=== PATIENT | male | born 1940 | race Caucasian/White ===

== ENCOUNTER 2017-02-08 15:25 | Emergency (ER) | payer MEDICARE | END 2017-02-08 15:42 | disposition home or self-care (01) | LOC: SCSER 15:25 | DX: S46.912A Strain of unspecified muscle, fascia and tendon at shoulder and upper arm level, left arm, initial encounter (principal); E78.2 Mixed hyperlipidemia; I10 Essential (primary) hypertension; N40.0 Benign prostatic hyperplasia without lower urinary tract symptoms; Z79.82 Long term (current) use of aspirin; Z79.899 Other long term (current) drug therapy; X50.0XXA Overexertion from strenuous movement or load, initial encounter | CPT/HCPCS: 99283 ==

== ENCOUNTER 2017-05-02 11:39 | Outpatient (CLI) | payer MEDICARE ==
[2017-05-02 12:38] LABS: #Eosinphils 0.2 thou/uL (0.0-0.7); #Lymphocytes 1.3 thou/uL (1.20-3.40); #Neutrophils 6.7 thou/uL (1.40-6.50); %Basophils 0.4 % (0.0-1.0); %Eosinophils 2.5 % (0.0-10.0); %Lymphocytes 14.1 % (21.0-51.0); %Monocytes 10.6 % (0.0-10.0); %Neutrophils 72.4 % (42.0-75.0); Hemoglobin 15.5 g/dL (14.0-18.0); Mean Corpuscular Hemoglobin 32.2 pg (27.0-31.0); Mean Corpuscular Volume 94.5 fl (80.0-94.0); Mean Platelet Volume 8.1 fL (7.4-10.4); Platelet Count 209 thou/uL (130-400); RBC Distribution Width 11.5 % (11.5-14.5); Red Blood Cell (RBC) Count 4.82 mill/uL (4.70-6.10); White Blood Cell (WBC) Count 9.2 thou/uL (4.8-10.8)
[2017-05-02 13:01] LABS: Anion Gap 12 mmol/L (10-20); BUN (Urea Nitrogen) 19 mg/dL (8.4-25.7); Calc. Creatinine Clearance 0 mL/min (70-130); Calcium 9.8 mg/dL (7.8-10.44); Carbon Dioxide 25 mmol/L (23-31); Chloride 104 mmol/L (98-107); Estimated GFR-MDRD 76; Glucose 83 mg/dL (83-110); Potassium 4.2 mmol/L (3.5-5.1); Sodium 137 mmol/L (136-145)
--- NOTE | 2017-05-02 14:28 | RAD ---
2 VIEW CHEST: Date: 05/02/17 HISTORY: Preoperative evaluation. FINDINGS: Lungs are clear and well aerated. No infiltrate or vascular congestion. Heart size upper normal. Post op sternotomy changes. Moderate degenerative spine changes. Radiopaque anchor noted in the right viktor ral head. IMPRESSION: No evidence of acute process. There are chronic changes as described. POS: OFF
--- NOTE | 2017-05-04 18:34 | EKG ---
Test Reason : Blood Pressure : / mmHG Vent. Rate : 060 BPM Atrial Rate : 060 BPM P-R Int : 192 ms QRS Dur : 100 ms QT Int : 404 ms P-R-T Axes : 075 099 065 degrees QTc Int : 404 ms Normal sinus rhythm Rightward axis Borderline ECG No previous ECGs available Confirmed by DR. Goldy HORN MD ([id number]) on 05/04/2017 6:33:47 PM Referred By: JOSE ALBERTO Confirmed By:DR. Goldy HORN MD
== END 2017-05-02 11:40 | disposition home or self-care (01) ==
LOC: LABBT 11:39
PROVIDERS: ATTEND Specialist
DX: Z01.818 Encounter for other preprocedural examination (principal); K64.8 Other hemorrhoids
CPT/HCPCS: 71046; 80048; 85025; 93005; 93010

== ENCOUNTER 2017-05-07 11:42 | Day surgery (SDC) | payer MEDICARE ==
[2017-05-02 12:03] VITALS: BMI 26.6
[2017-05-07] MEDS ORDERED: Ketorolac Tromethamine 30 MG/ML VIAL ONE (12:36)
[2017-05-07] MEDS ORDERED: CEFAZOLIN/Water 2 GM/20 ML SYRINGE ONE (12:36)
[2017-05-07] MEDS ORDERED: cefOXitin 2 GM, Syringe 1 ML in Sterile Water 10 ML SLOW IVP SCH (13:15)
[2017-05-07] MEDS ORDERED: Bupivacaine/Epinephrine 0.25% 30 ML VIAL ONE (13:43)
[2017-05-07] MEDS ORDERED: Lidocaine 2% Jelly 5 ML TUBE ONE (13:43)
--- NOTE | 2017-05-07 16:55 | OP ---
DATE OF PROCEDURE: 05/07/2017 PREOPERATIVE DIAGNOSIS: Bleeding internal hemorrhoids. POSTOPERATIVE DIAGNOSIS: Bleeding internal hemorrhoids. OPERATION PERFORMED: PPH stapled hemorrhoidectomy. SURGEON: Sohail Bradley M.D. ANESTHESIA: General with laryngeal mask airway. INDICATIONS: The patient is a 76-year-old white male. He presents with recurrent symptoms related t o his internal hemorrhoids. I have recommended stapled hemorrhoidectomy and he presents for this pro cedure. DESCRIPTION OF OPERATION: Informed consent was obtained, and patient was taken to the operating room where general anesthesia obtained with the patient in the supine position. He was then rolled over in a prone jackknife position. Buttocks were taped apart, perirectal area was prepped with Betadine, draped in sterile fashion. Local anesthetic was infiltrated and he is in a 4 quadrant intersphincte cindy approach, utilizing 0.25% Marcaine with epinephrine. The anal dilator was easily passed into the anal canal, and using the same dilator, the anal retractor was positioned and secured in place with 4 interrupted sutures of 2-0 Vicryl. The partial obturator was then utilized to place a pursestring suture of 2-0 Prolene several centimeters proximal to the dentate line. The PPH stapler was obtained and maximally opened and the anvil was passed above the pursestring suture within the rectum. The p ursestring suture was secured around the post of the stapler. The tails of the suture were pulled th rough the lateral openings and the stapler. With external tension on these suture tails, the stapler was closed, advancing the stapler into the anal canal to the appropriate location. The stapler was fired and removed, and the resected specimen was inspected and found to be the appropriate width and thickness. The staple line was then inspected using the partial obturator. Several interrupted sutures of 3-0 V icryl were placed to control any minor oozing along the staple line. Once the staple line was found to be meticulously hemostatic, I placed an internal dressing of Gelfoam and lidocaine jelly. Dry gau ze dressing was placed externally along with mesh pants. There were no complications. Blood loss wa s essentially none. The patient tolerated the procedure well and was taken to recovery room in stabl e condition.
== END 2017-05-07 16:45 | disposition home or self-care (01) ==
LOC: SDC 11:42
PROVIDERS: ATTEND Specialist
PROC: 06BY0ZC Excision of Hemorrhoidal Plexus, Open Approach (ICD-10-PCS; principal; 2017-05-07)
DX: K64.8 Other hemorrhoids (principal); I10 Essential (primary) hypertension; E78.5 Hyperlipidemia, unspecified; N40.0 Benign prostatic hyperplasia without lower urinary tract symptoms; I25.10 Atherosclerotic heart disease of native coronary artery without angina pectoris; K21.9 Gastro-esophageal reflux disease without esophagitis; Z79.82 Long term (current) use of aspirin; Z79.899 Other long term (current) drug therapy; Z95.1 Presence of aortocoronary bypass graft; Z98.890 Other specified postprocedural states
CPT/HCPCS: A4216; J0131; J0694; J1885; J2175

== ENCOUNTER 2017-08-15 13:12 | Outpatient (CLI) | payer MEDICARE ==
--- NOTE | 2017-08-15 15:09 | PET ---
PET CT: Reference is made to prior CT exam dated 07/23/16. CLINICAL HISTORY: Melanoma of face/left cheek. TECHNIQUE: Biodistribution of radiotracer activity is appropriate subsegment to IV administration of F18-FDG. No ndiagnostic attenuation noncontrast CT examination performed in conjunction with scintigraphic imagin g from the level of the vertex to the feet. FINDINGS/IMPRESSION: There is no evidence of a hypermetabolic mass, or evidence of hypermetabolic adenopathy demonstrated. No discrete hypermetabolic cutaneous lesions are evident. Incidental note of enlargement of the prostate gland. There is colonic diverticulosis. Scattered vasc ular disease is present. There is a noninflamed, fat-containing umbilical hernia. IMPRESSION: There is no evidence of a hypermetabolic mass, or evidence of hypermetabolic adenopathy demonstrated. POS: [facility]
== END 2017-08-15 13:13 | disposition home or self-care (01) ==
LOC: PET 13:12
PROVIDERS: ATTEND Internal Medicine Hematology & Oncology
DX: C43.39 Malignant melanoma of other parts of face (principal)
CPT/HCPCS: 78816; A9552

== ENCOUNTER 2018-12-16 05:13 | Outpatient (CLI) | payer MEDICARE ==
[2018-12-16 10:44] LABS: Hemoglobin 15.6 g/dL (14.0-18.0); Mean Corpuscular HGB CONC 34.1 g/dL (32.0-36.0); Mean Corpuscular Hemoglobin 31.9 pg (27.0-31.0); Mean Corpuscular Volume 93.3 fL (78.0-98.0); Mean Platelet Volume 8.2 fL (7.4-10.4); Platelet Count 200 thou/uL (130-400); RBC Distribution Width 11.4 % (11.5-14.5); White Blood Cell (WBC) Count 8.1 thou/uL (4.8-10.8)
[2018-12-16 11:05] LABS: Anion Gap 12 mmol/L (10-20); BUN (Urea Nitrogen) 19 mg/dL (8.4-25.7); Calc. Creatinine Clearance 0 mL/min (70-130); Calcium 9.2 mg/dL (7.8-10.44); Carbon Dioxide 27 mmol/L (23-31); Chloride 102 mmol/L (98-107); Estimated GFR-MDRD 77; Glucose 97 mg/dL (83-110); Potassium 4.1 mmol/L (3.5-5.1); Sodium 137 mmol/L (136-145)
--- NOTE | 2018-12-16 12:48 | EKG ---
Test Reason : Blood Pressure : / mmHG Vent. Rate : 067 BPM Atrial Rate : 067 BPM P-R Int : 188 ms QRS Dur : 096 ms QT Int : 396 ms P-R-T Axes : 063 106 071 degrees QTc Int : 418 ms Normal sinus rhythm Possible Right ventricular hypertrophy Abnormal ECG When compared with ECG of 02-MAY-2017 11:14, No significant change was found Confirmed by DR. Jackie SUTTON ([id number]) on 12/16/2018 12:48:14 PM Referred By: YOLETTE Confirmed By:DR. Jackie SUTTON
== END 2018-12-16 05:14 | disposition home or self-care (01) ==
LOC: LABBT 05:13
PROVIDERS: ATTEND Neurological Surgery
DX: Z01.818 Encounter for other preprocedural examination (principal); M54.16 Radiculopathy, lumbar region
CPT/HCPCS: 80048; 85027; 93005; 93010

== ENCOUNTER 2018-12-22 09:02 | Day surgery (SDC) | payer MEDICARE ==
[2018-12-16 08:45] VITALS: BMI 24.7
[2018-12-22] MEDS ORDERED: ePHEDrine/0.9% NaCl/PF SYRINGE 50 mg/10 ml ONE (10:28)
[2018-12-22] MEDS ORDERED: Ondansetron PF 4 MG/2 ML Vial ONE (10:28)
[2018-12-22] MEDS ORDERED: Lidocaine 1% PF 5 ML VIAL ONE (10:28)
[2018-12-22] MEDS ORDERED: PHENYLEPHRINE-NS 100 MCG/ML 10 ML SYRINGE ONE (10:28)
[2018-12-22] MEDS ORDERED: PROPOFOL 200 MG/20 ML VIAL ONE (10:28)
[2018-12-22] MEDS ORDERED: Rocuronium Bromide 10 MG/ML (10ML VIAL) ONE (10:28)
[2018-12-22] MEDS ORDERED: Dexamethasone 20 MG/5 ML VIAL ONE (10:28)
[2018-12-22] MEDS ORDERED: Propofol 1,000 MG/100 ML VIAL IV ONE ×2 (11:13→11:14)
[2018-12-22] MEDS ORDERED: Fentanyl 100 MCG/2 ML VIAL ONE (13:31)
[2018-12-22] MEDS ORDERED: SUGAMMADEX SODIUM 200 MG/2 ML VIAL ONE (14:38)
[2018-12-22] MEDS ORDERED: Tamsulosin HCl 0.4 MG CAP ONE (15:02)
--- NOTE | 2018-12-22 15:06 | OP ---
DATE OF PROCEDURE: 12/22/2018 DE ALCHOLIZER: Kianna Timmons PA-C PROCEDURE PERFORMED: Left L3-4 microdiskectomy. DESCRIPTION OF PROCEDURE: The patient was brought to the operating room and intubated. He was rolled in prone position on gel-filled chest rolls. An incision was made exposing L3 and L4 on the left, and the level was confirmed by x-ray. We performed left L3-L4 hemilaminectomy. The patient had an external synovial cyst and an unusual facet joint tear. We next identified the left L4 nerve root, and beneath it, there was a fragmented disk herniation, removed in multiple pieces. Some of the disk clearly had extruded intradurally into the left L4 nerve root sleeve, and this was also removed. A complete decompression of left L4 was achieved. The wound was then extensively irrigated. MAC hemostasis was secured. Vancomycin powder was applied, and the wound was closed in anatomic layers. Job ID: [id number]
[2018-12-22] MEDS ORDERED: HYDROcodone/Acetaminophen 5/325 mg Tablet ONE (16:40)
== END 2018-12-22 16:50 | disposition home or self-care (01) ==
LOC: SDC 09:02
PROVIDERS: ATTEND Neurological Surgery
PROC: 0ST20ZZ Resection of Lumbar Vertebral Disc, Open Approach (ICD-10-PCS; principal; 2018-12-22)
PROC: 01NB0ZZ Release Lumbar Nerve, Open Approach (ICD-10-PCS; 2018-12-22)
DX: M51.16 Intervertebral disc disorders with radiculopathy, lumbar region (principal); I10 Essential (primary) hypertension; E78.5 Hyperlipidemia, unspecified; M71.38 Other bursal cyst, other site; M53.86 Other specified dorsopathies, lumbar region; I25.10 Atherosclerotic heart disease of native coronary artery without angina pectoris; K21.9 Gastro-esophageal reflux disease without esophagitis; Z87.891 Personal history of nicotine dependence; Z79.899 Other long term (current) drug therapy; Z79.82 Long term (current) use of aspirin
CPT/HCPCS: 76000; J0131; J0690; J1100; J2001; J2405; J2704; J3010; J3370

== ENCOUNTER 2019-06-12 04:28 | Inpatient (IN) | payer MEDICARE ==
[2019-06-12] MEDS ORDERED: Nitroglycerin 0.4 MG TAB 1 EACH ONE (04:40)
[2019-06-12 04:57] LABS: #Basophils 0.1 thou/uL (0.0-0.2); #Eosinphils 0.4 thou/uL (0.0-0.7); #Lymphocytes 1.8 thou/uL (1.20-3.40); %Basophils 0.8 % (0.0-1.0); %Eosinophils 5.9 % (0.0-10.0); %Lymphocytes 24.5 % (21.0-51.0); %Monocytes 13.4 % (0.0-10.0); %Neutrophils 55.5 % (42.0-75.0); Mean Corpuscular HGB CONC 33.3 g/dL (32.0-36.0); Mean Corpuscular Hemoglobin 31.3 pg (27.0-31.0); Mean Platelet Volume 8.9 fL (7.4-10.4); Platelet Count 192 thou/uL (130-400); RBC Distribution Width 11.5 % (11.5-14.5); Red Blood Cell (RBC) Count 4.79 mill/uL (4.70-6.10); White Blood Cell (WBC) Count 7.2 thou/uL (4.8-10.8)
[2019-06-12] MEDS ORDERED: Aspirin Chewable 81 MG TAB ONE (05:02)
[2019-06-12 05:18] LABS: ALT (SGPT) 22 U/L (8-55); AST (SGOT) 20 U/L (5-34); Albumin 4.2 g/dL (3.4-4.8); Alkaline Phosphatase 57 U/L (40-110); Anion Gap 10 mmol/L (10-20); BUN (Urea Nitrogen) 22 mg/dL (8.4-25.7); Bilirubin, Total 1.1 mg/dL (0.2-1.2); Calc. Creatinine Clearance 0 mL/min (70-130); Calcium 9.3 mg/dL (7.8-10.44); Carbon Dioxide 27 mmol/L (23-31); Chloride 102 mmol/L (98-107); Estimated GFR-MDRD 61; Globulin 2.7 g/dL (2.4-3.5); Glucose 102 mg/dL (83-110); Lipase 17 U/L (8-78); Potassium 4.2 mmol/L (3.5-5.1); Protein, Total 6.9 g/dL (5.8-8.1); Sodium 135 mmol/L (136-145)
[2019-06-12] MEDS ORDERED: Heparin 10,000 UNITS/1 ML VIAL ONE (05:18)
[2019-06-12 05:43] LABS: INR-International Normal Ratio 0.9; Prothrombin Time 11.8 SEC (12.0-14.7)
[2019-06-12 05:44] LABS: PTT 40.9 SEC (22.9-36.1)
[2019-06-12] MEDS ORDERED: Fentanyl 100 MCG/2 ML VIAL ONE (05:57)
[2019-06-12] MEDS ORDERED: Midazolam HCl 2 mg/2 ml Vial ONE (05:57)
[2019-06-12] MEDS ORDERED: DOPamine 400 MG/D5W 250 ML 250 ML ONE (06:02)
--- NOTE | 2019-06-12 07:32 | RAD ---
Exam: Chest one view HISTORY:Chest pain Comparison: 09/26/2006, 05/02/2017 FINDINGS: Cardiac silhouette:Cardiomegaly. Sternotomy wires and mediastinal clips. Aorta: Unremarkable Pulmonary vessels: Normal Costophrenic angles: Clear LUNGS: No mass or consolidation. Hyperinflation with chronic lung parenchymal changes. Pneumothorax: None Osseous abnormalities: None IMPRESSION: No acute cardiopulmonary process.
[2019-06-12] MEDS ORDERED: Acetaminophen/Codeine 30-300mg Tablet PO PRN ×2 (08:02)
[2019-06-12] MEDS ORDERED: Nitroglycerin 0.4 MG TAB (25 Tab Bottle) SL PRN (08:02)
[2019-06-12] MEDS ORDERED: Sodium Chloride 0.9% 200 ML IV PRN (08:02)
[2019-06-12] MEDS ORDERED: Sodium Chloride 0.9% 1,000 ML IV SCH (08:15)
[2019-06-12] MEDS ORDERED: Clopidogrel Bisulfate 300 MG TAB PO SCH (08:15)
[2019-06-12] MEDS ORDERED: Iopamidol 370 76% 100 ML VIAL ONE (09:36)
[2019-06-12] MEDS ORDERED: Iopamidol 370 76% 50 ML VIAL FS ONE (09:36)
--- NOTE | 2019-06-12 09:37 | HP ---
HISTORY OF PRESENT ILLNESS: Fercho Vergara is a 78-year-old white male who has had 2 previous bypass surgeries, the last in 2006. He denies any recent chest discomfort, but awoke this morning at 4 a.m. with chest pressure and some shortness of breath. He came to the emergency room, was given sublingual nitroglycerin and intravenous heparin, placed on a drip. His pain has improved; however, is still somewhat present. EKG shows possible 0.[address]-segment elevation in II, III , and F. He continues to have chest discomfort, although it is better than when he arrived. PAST MEDICAL HISTORY: 1. Hypercholesterolemia. 2. Questionable hypertension. 3. No history of diabetes. MEDICATIONS: 1. Aspirin 81 daily. 2. Finasteride 5 mg daily. 3. Flomax 0.4 mg nightly. 4. Lisinopril 2.5 mg nightly. 5. Metoprolol 12.5 mg nightly. 6. Omeprazole 20 mg daily. 7. Rosuvastatin 20 mg nightly. ALLERGIES: NONE. OPERATIONS: 1. CABG. 2. Hernia surgery. 3. Rotator cuff surgery. SOCIAL HISTORY: Smoked in the distant past. REVIEW OF SYSTEMS: A 10-point review of systems is otherwise unremarkable. PHYSICAL EXAMINATION: VITAL SIGNS: Blood pressure 120/72 and pulse of 80. HEENT: PERRL. NECK: Supple. CHEST: Clear. CARDIAC: S1 and S2 ae normal without any S3, S4, or murmurs. Carotid upstrokes normal without bruits. ABDOMEN: Normal bowel sounds without tenderness. EXTREMITIES: No clubbing, cyanosis, or edema. NEUROLOGIC: Grossly intact. SKIN: Warm and dry. LABORATORY DATA: EKG findings as noted above. CBC is unremarkable. Sodium 135 , potassium 4.2, chloride 102, carbon dioxide 27, BUN 22, and creatinine 1.16. Troponin I of 0.011. IMPRESSION: The patient's EKG does not meet STEMI criteria; however, he has known coronary artery disease and is having continued ongoing chest pain. It was recommended he undergo cardiac catheterization. Risks of this were discussed with the patient's including , myocardial infarction, dye reaction, vascular injury, CVA, transfusion, limb loss, renal loss, etc. Also risk of intervention with PTCA and stent placement were discussed including , myocardial infarction, emergent CABG, restenosis, stent thrombosis, vessel perforation, etc. He has no upcoming surgeries and has never had gastrointestinal bleeding or stroke. It is recommended that a drug-eluting stent be placed if needed. Job ID: [id number] MTDD
[2019-06-12] MEDS: Aspirin 81 mg Enteric Coated Tablet PO SCH (09:43)
[2019-06-12] MEDS: Finasteride 5 MG TAB PO SCH (09:43)
[2019-06-12] MEDS: Lisinopril 2.5 MG TAB PO SCH (09:44)
[2019-06-12] MEDS ORDERED: Heparin 10,000 UNITS/ 10 ML VIAL ONE (12:08)
[2019-06-12 15:25] LABS: Troponin I 0.299 ng/mL (< 0.028)
--- NOTE | 2019-06-12 15:36 | PRG ---
DATE OF SERVICE: 06/12/2019 Mr. Vergara underwent emergency cardiac catheterization today. The patient was found to have a patent LAD graft to the LAD. It was one of the old original vein grafts. The internal mammary graft look like it was intramyocardial, possibly went to a small diagonal branch. The patient may have had some ischemic area in the diagonal branch. It is difficult to be certain. Please see Dr. Alejandre's notes. At this time, medical therapy appears the most appropriate. Plavix has been added. Zetia will be added, he should be able to be released home tomorrow if doing well. Job ID: [id number]
--- NOTE | 2019-06-12 20:21 | CON ---
DATE OF CONSULTATION: 06/12/2019 HISTORY OF PRESENT ILLNESS: Mr. Vergara is a 78-year-old male, who has a history of coronary artery disease. He said he walked on the [place] yesterday over 11,000 steps. He has been doing almost 10,000 steps on any given day. He has had no episodes of chest pain. Apparently last night, he developed neck and chest discomfort at approximately 4 in the morning. Subsequently presented to the emergency room with persistent discomfort in spite of nitrates and anticoagulation, so he was taken to the dental laboratory assistant. No stenting was required. He is pain-free. PAST MEDICAL HISTORY: Remarkable for: 1. Lipid disorder, hypertension, BPH, coronary artery bypass grafting in the past on two occasions, herniorrhaphy, and rotator cuff repair. 2. Left L3-L4 diskectomy done in December of last year. Melanoma of his face with a negative PET imaging afterwards in 2017. 3. Status post colon polyp resections in 2017. 4. Status post resection of a basal cell carcinoma in 2012. SOCIAL HISTORY: He is a distant smoker. He is not a daily drinker. PHYSICAL EXAMINATION: GENERAL: He is in no distress. He is lying flat in bed, talking in complete sentences. VITAL SIGNS: Heart rate is in the 60s, respiratory rates in the teens, and blood pressure 142/69. HEENT: Pupils are equal. Sclerae are anicteric. NECK: Supple. LUNGS: Clear. HEART: Regular rhythm. S1, S2 are normal. ABDOMEN: Soft and nontender. EXTREMITIES: Without clubbing, cyanosis, or edema. NEUROLOGIC: Nonfocal. LABORATORY DATA: White count 7.2, hemoglobin 15, and platelets 192. Sodium 135 , potassium 4.2, chloride 102, bicarb 27, BUN 22, and creatinine 1.16. Troponin at 2:47 this afternoon was 0.29. IMPRESSION: 1. Prolonged episode of chest pain with non-Q-wave myocardial infarction with minimal bump in troponin, status post emergent cardiac catheterization. 2. History of two coronary artery bypass grafting procedures in the past. 3. History of melanoma. 4. History of skin cancer. 5. History of hypertension. 6. Distant history of tobacco with no clinical obstructive lung disease. Overall appears to be improving. We will follow while he is in the Critical Care Unit. This is a 70 min consult with greater than 50% of the time spent on the unit with coordination of care. Job ID: [id number] MTDD
[2019-06-12] MEDS ORDERED: Rosuvastatin 20 MG TAB PO SCH (21:00)
[2019-06-12] MEDS ORDERED: Tamsulosin HCl 0.4 MG CAP PO SCH (21:00)
[2019-06-12 21:27] LABS: Troponin I 0.573 ng/mL (< 0.028)
[2019-06-13] MEDS: Aspirin 81 mg Enteric Coated Tablet PO SCH (08:14)
[2019-06-13] MEDS: Finasteride 5 MG TAB PO SCH (08:14)
[2019-06-13] MEDS: Lisinopril 2.5 MG TAB PO SCH (08:14)
[2019-06-13] MEDS ORDERED: Ezetimibe 10 MG TAB PO SCH (09:00)
[2019-06-13] MEDS ORDERED: Clopidogrel Bisulfate 75 MG TAB PO SCH (09:00)
--- NOTE | 2019-06-13 11:56 | PRG ---
DATE OF SERVICE: 06/13/2019 SUBJECTIVE: Mr. Vergara has had no chest pain. He says he feels fine. He wants to go home. He actually has tomorrow. OBJECTIVE: VITAL SIGNS: Afebrile, heart rate 64, respiratory rate is 18, oximetry is 96% on room air, blood pressure 140/61. LUNGS: Clear. IMPRESSION AND PLAN: Status post urgent catheterization for chest pain, clinically stable. His medications have been adjusted by Cardiology. We will sign off. Job ID: [id number]
[2019-06-13 15:03] VITALS: BP 146/65; TEMP 98.1
--- NOTE | 2019-06-15 09:59 | DIS ---
DATE OF ADMISSION: 06/12/2019 DATE OF DISCHARGE: 06/13/2019 FINAL DIAGNOSES: 1. Status post non-ST elevation myocardial infarction. 2. Previous bypass surgery. 3. Hypercholesterolemia. MEDICINES: At the time of discharge, same as admission with the addition of, 1. Plavix 75 mg a day. 2. Zetia 10 mg a day. Please see note dictated by Dr. Alejandre. The patient underwent cardiac catheterization on an urgent basis when he had ongoing chest pain. Please see Dr. Alejandre's note for the results of the cardiac catheterization. It was unclear really what the source of the bvf-XR-mfvdzegan elevation infarction was, possibly a diagonal branch, not amenable to percutaneous therapy. Of note, the LAD is perfused by a very old vein graft, which is still patent with adequate flow. Internal mammary graft appears to be anastomosed to a side branch, not the LAD itself. The patient was observed and released home on the above listed medicines. PERTINENT LABORATORY DATA: The peak troponin level was 0.573. ASSESSMENT: 1. Non-ST elevation infarction. 2. Previous bypass surgery on two occasions. Medical therapy being the appropriate treatment. Job ID: [id number]
== END 2019-06-13 15:11 | disposition home or self-care (01) | DRG 282 ==
LOC: ERS 04:28 → CCU 08:37 → 2NO 17:29
PROVIDERS: ADMIT Internal Medicine Cardiovascular Disease; ATTEND Internal Medicine Cardiovascular Disease
PROC: 4A023N7 Measurement of Cardiac Sampling and Pressure, Left Heart, Percutaneous Approach (ICD-10-PCS; principal; 2019-06-12)
PROC: B2111ZZ Fluoroscopy of Multiple Coronary Arteries using Low Osmolar Contrast (ICD-10-PCS; 2019-06-12)
PROC: B2151ZZ Fluoroscopy of Left Heart using Low Osmolar Contrast (ICD-10-PCS; 2019-06-12)
DX: I21.4 Non-ST elevation (NSTEMI) myocardial infarction (principal); E78.00 Pure hypercholesterolemia, unspecified; I10 Essential (primary) hypertension; I25.10 Atherosclerotic heart disease of native coronary artery without angina pectoris; E78.5 Hyperlipidemia, unspecified; N40.0 Benign prostatic hyperplasia without lower urinary tract symptoms; Z95.1 Presence of aortocoronary bypass graft; Z86.010 Personal history of colon polyps; Z85.820 Personal history of malignant melanoma of skin; Z87.891 Personal history of nicotine dependence; Z88.1 Allergy status to other antibiotic agents
CPT/HCPCS: 36415; 71045; 76942; 80053; 80061; 83690; 84484; 85025; 85347; 85610; 85730; 86850; 86900; 86901; 93005; 93459; 93798; 94760; 96361; 96365; 96374; 99152; 99153; C1769; J1265; J1644; J2250; J3010; Q9967

== ENCOUNTER 2019-08-24 05:00 | Inpatient (IN) | payer MEDICARE, OTHER ==
[2019-08-24 05:38] LABS: #Basophils 0.1 thou/uL (0.0-0.2); #Lymphocytes 0.6 thou/uL (1.20-3.40); #Monocytes 0.7 thou/uL (0.11-0.59); #Neutrophils 3.8 thou/uL (1.40-6.50); %Basophils 1.2 % (0.0-1.0); %Eosinophils 0.2 % (0.0-10.0); %Monocytes 13.3 % (0.0-10.0); %Neutrophils 73.3 % (42.0-75.0); Hemoglobin 13.3 g/dL (14.0-18.0); Mean Corpuscular HGB CONC 32.9 g/dL (32.0-36.0); Mean Corpuscular Hemoglobin 30.4 pg (27.0-31.0); Mean Corpuscular Volume 92.3 fL (78.0-98.0); Mean Platelet Volume 7.4 fL (7.4-10.4); Platelet Count 200 thou/uL (130-400); RBC Distribution Width 11.2 % (11.5-14.5); Red Blood Cell (RBC) Count 4.37 mill/uL (4.70-6.10); White Blood Cell (WBC) Count 5.2 thou/uL (4.8-10.8)
[2019-08-24 06:01] LABS: ALT (SGPT) 82 U/L (8-55); AST (SGOT) 104 U/L (5-34); Albumin 3.7 g/dL (3.4-4.8); Alkaline Phosphatase 41 U/L (40-110); Anion Gap 10 mmol/L (10-20); BUN (Urea Nitrogen) 10 mg/dL (8.4-25.7); Bilirubin, Total 0.7 mg/dL (0.2-1.2); CK (CPK) 79 U/L (30-200); Calc. Creatinine Clearance 0 mL/min (70-130); Carbon Dioxide 30 mmol/L (23-31); Chloride 96 mmol/L (98-107); Estimated GFR-MDRD 89; Globulin 3.1 g/dL (2.4-3.5); Glucose 100 mg/dL (83-110); Potassium 4.3 mmol/L (3.5-5.1); Protein, Total 6.8 g/dL (5.8-8.1); Sodium 132 mmol/L (136-145)
[2019-08-24] MEDS ORDERED: Azithromycin 500 MG VIAL ONE (07:19)
[2019-08-24] MEDS ORDERED: Aspirin Chewable 81 MG TAB ONE (07:22)
--- NOTE | 2019-08-24 07:47 | RAD ---
RADIOGRAPH CHEST 1 VIEW: DATE: 08/24/2019 TIME: 5:42 AM HISTORY: 79-year-old COVID-19 positive male with dyspnea COMPARISON: 06/12/2019 FINDINGS: New finding of prominent interstitial markings at the bilateral mid and lower lung zones. New finding of partial silhouetting of bilateral hemidiaphragms, left greater than right. Cardiac size at upper limits of normal or mildly enlarged, with shaggy left heart border. Sternotomy wires. Lung apic es clear. No pneumothorax. IMPRESSION: New interstitial changes at bilateral mid and lower lung zones: Mild Pulmonary interstitial edema jeet sherly viral pneumonia. Recommend follow-up.
[2019-08-24] MEDS ORDERED: Dexamethasone 10 MG/ML VIAL ONE (08:22)
[2019-08-24] MEDS ORDERED: Enoxaparin Sodium 40 MG/0.4 ML SYRINGE ONE (08:22)
[2019-08-24 09:00] LABS: Troponin I 0.031 ng/mL (< 0.028)
[2019-08-24] MEDS ORDERED: Aztreonam 1 GM in Sodium Chloride 0.9% 100 ML IVPB SCH (09:15)
--- NOTE | 2019-08-24 09:19 | CT ---
CT PULMONARY ANGIOGRAM WITH IV CONTRAST AND 3D POSPROCESSING: Date: 08/24/2019 HISTORY: Dyspnea. COVID-positive. FINDINGS: There is good contrast opacification of the pulmonary arterial vasculature without filling defects to suggest pulmonary embolism. The thoracic aorta is well opacified without aneurysm or dissection. No pleural or pericardial effusions are seen. Patchy peripheral ground-glass opacities are seen bilatera lly. There are degenerative changes in the spine. IMPRESSION: 1. No CT evidence of pulmonary embolism. 2. Bilateral ground-glass infiltrates are consistent with COVID-19 pneumonia. POS: [facility]
[2019-08-24] MEDS ORDERED: Iopamidol-370 76% 500 ML 1 ML ONE (09:49)
[2019-08-24] MEDS ORDERED: Bisacodyl 5 MG TAB PO PRN (09:54)
[2019-08-24] MEDS ORDERED: Bisacodyl 10 MG SUPP PR PRN (09:54)
[2019-08-24] MEDS ORDERED: Ondansetron ODT 4 MG TAB PO PRN (09:54)
[2019-08-24] MEDS ORDERED: Calcium Carbonate 500 MG ChewTAB PO PRN (09:54)
[2019-08-24] MEDS ORDERED: Acetaminophen 325 MG TAB PO PRN (09:54)
[2019-08-24] MEDS ORDERED: Ondansetron PF 4 MG/2 ML Vial IVP PRN (09:54)
[2019-08-24] MEDS ORDERED: Cepastat Lozenges 1 LOZ PO PRN (09:57)
[2019-08-24] MEDS ORDERED: Diabetic Tussin 200 MG/10 ML UDCUP PO PRN (09:57)
[2019-08-24 10:41] VITALS: BMI 32.8
[2019-08-24] MEDS: Albuterol 200 PUFF (6.7GM INHALER) INH SCH ×4 (11:38→21:04)
--- NOTE | 2019-08-24 17:36 | CON ---
DATE OF CONSULTATION: 08/24/2019 REASON FOR CONSULTATION: COVID infection. HISTORY OF PRESENT ILLNESS: A 79-year-old with history of hyperlipidemia and hypertension, who had a tcx-TX-[id number] elevation NE just last June and he had an urgent cardiac cath and he was not amenable to percutaneous therapy. He did have an old vein graft from a prior bypass graft surgery, which was still patent, so more recently and actually more like 15 days ago, he was at a [employer] and later on it became known that one of the people at the [employer] was tested positive for COVID, and now him and his had tested positive. He was trying to stay at home, but became more short of breath and had to be admitted, came through the emergency room, and today, his O2 saturations were in the mid 80s on room air. He is currently feeling well. His cough has subsided a bit. No headaches, visual symptoms, sore throat , odynophagia, or dysphagia. Mild dyspnea. No chest pain. No abdominal pain or diarrhea. No genitourinary symptoms. No joint symptoms. No skin disorder. PAST MEDICAL HISTORY: 1. Coronary artery disease. 2. Bypass graft surgery. 3. Recent ktt-UC-jlbjgte elevation NE. 4. Hypertension. 5. Hyperlipidemia. PAST SURGICAL HISTORY: Also includes: 1. Rotator cuff repair. 2. Hernia repair. SOCIAL HISTORY: Retired. Never smoker. ALLERGIES: CEPHALEXIN. FAMILY HISTORY: Cad Meds: 1. Proventil. 2. Aspirin. 3. Dulcolax. 4. Plavix. 5. Decadron. 6. Lovenox. 7. Zetia. 8. Mucinex. 9. Imdur. 10. Zestril. 11. Zofran. 12. Protonix. 13. Crestor. 14. Flomax. PHYSICAL EXAMINATION: VITAL SIGNS: He has been afebrile, BP 130/76, pulse 80, respirations 20, and O2 saturation 94 to 95. SKIN: Normal. No lymphadenopathy. Peripheral IV access. HEENT: Ocular movements conjugate. NECK: Supple. LUNGS: Symmetric, clear breath sounds. HEART: S1 and S2. Regular rate. No S3 or S4. ABDOMEN: Soft, not distended or tender. No ascites. No bladder distention. EXTREMITIES: No joint inflammatory activity, moves extremities equally. NEUROLOGIC: Cognitive function appears to be intact. LABORATORY DATA: Sodium 132 and creatinine 0.84. AST 104 and ALT 82. Troponin 0.037. CRP 9.65. Albumin 3.7. A chest CT with scattered ground-glass opacity changes. ASSESSMENT: COVID pneumonia, moderate disease, 10 days of illness thus far. He is not eligible for remdesivir. We will go ahead and continue Decadron and monitor ferritin, CRP, and D-dimer. Enoxaparin. Job ID: [id number] MTDD
[2019-08-24] MEDS ORDERED: Enoxaparin Sodium 40 MG/0.4 ML SYRINGE SC SCH (21:00)
[2019-08-24] MEDS ORDERED: Rosuvastatin 20 MG TAB PO SCH (21:00)
[2019-08-24] MEDS: Zinc Sulfate 220 MG CAP PO SCH (21:02)
[2019-08-24] MEDS: Senokot S 8.6-50 MG TAB PO SCH (21:02)
[2019-08-24] MEDS: Tamsulosin HCl 0.4 MG CAP PO SCH (21:04)
[2019-08-24] MEDS: guaiFENesin ER 600 MG TAB PO SCH (21:04)
[2019-08-24] MEDS: Aspirin Chewable 81 MG TAB PO SCH (21:04)
[2019-08-24] MEDS: Lisinopril 2.5 MG TAB PO SCH (21:04)
--- NOTE | 2019-08-24 21:34 | PDOC.EVN ---
Event Note - Event Note Event Note: Note dictated. Full code. DPOA - spouse
--- NOTE | 2019-08-24 21:57 | HP ---
PRIMARY CARE: Tomi Peralta MD CHIEF COMPLAINT: Shortness of breath with low oxygen saturation. HISTORY OF PRESENT ILLNESS: The patient is a 79-year-old male with coronary artery disease status post bypass, who was diagnosed with COVID-19 infection 10 days ago, presented to the emergency room with above complaints. Over the past few days, the patient developed gradual worsening shortness of breath to the extent that he was short of breath on gces-gr-oudmglvo exertion. He also had cough with minimal sputum. He also had fever without any chills. His also has similar symptoms. He was diagnosed with COVID 10 days ago. He denies any nausea, vomiting, chest pain, palpitations, diaphoresis, dysuria, hematuria, urgency, or skin rash. His O2 saturation at home was in 80s. In the emergency room, his initial vital signs showed temperature 100.5 with respirations of 28, pulse rate of 95 with blood pressure of 138/69, and O2 saturation of 94% on 2 L nasal cannula. His EKG showed sinus rhythm with nonspecific ST-T wave changes. Chest x-ray showed bilateral pneumonia. CT angiogram of the chest showed bilateral ground-glass infiltrates consistent with COVID-19 pneumonia. He received Decadron along with Lovenox, Azactam, aspirin, and azithromycin in the emergency room. PAST MEDICAL HISTORY: 1. Coronary artery disease status post CABG with recent non ST elevation ID. 2. Hyperlipidemia. 3. Hypertension. 4. Benign prostatic hypertrophy. 5. GERD. PAST SURGICAL HISTORY: 1. Coronary artery bypass grafting. 2. Hernia repair. 3. Right rotator cuff surgery. ALLERGIES: THE PATIENT IS ALLERGIC TO KEFLEX. CURRENT HOME MEDICATIONS: 1. Aspirin 81 mg daily. 2. Plavix 75 mg daily. 3. Toprol-XL 12.5 mg at bedtime. 4. Omeprazole 20 mg daily. 5. Crestor 20 mg at bedtime. 6. Flomax 0.4 mg at bedtime. 7. Zetia 10 mg daily. 8. Finasteride 5 mg daily. 9. Isosorbide mononitrate 30 mg daily. 10. Lisinopril 2.5 mg at bedtime. SOCIAL HISTORY: The patient currently lives at home with his family. He drinks alcohol socially. No smoking or drug use. FAMILY HISTORY: Negative for premature coronary artery disease. REVIEW OF SYSTEMS: All other review of systems was reviewed and was found negative. PHYSICAL EXAMINATION: VITAL SIGNS: As discussed above. GENERAL: A 79-year-old male, ill-appearing, in no significant respiratory distress at rest. HEENT: Head, atraumatic and normocephalic. Sclerae are anicteric. Moist mucous membrane. No oral lesion. NECK: Supple. No JVD. No carotid bruit. LUNGS: Showed scattered rhonchi with few rales. No accessory muscle use. Lungs were symmetric. HEART: S1 and S2 present. Regular. No rubs or gallops. Healed midline scar from previous CABG. ABDOMEN: Soft. Bowel sounds present. No rebound or guarding. No costovertebral angle tenderness. EXTREMITIES: No edema or calf tenderness. NEUROLOGY: Grossly nonfocal. Moves all 4 extremities. PSYCHIATRY: Alert, awake, and oriented x3. SKIN: Warm and dry. LYMPH NODES: No palpable lymph nodes in the neck. PERIPHERAL VASCULAR: Radial pulses palpable bilaterally. MUSCULOSKELETAL: No joint swelling tenderness. LABORATORY FINDINGS: CBC showed WBC 5.2 with hemoglobin 13.3, hematocrit 40.4, and platelet count of 200. D-dimer was 0.9. Chemistry showed sodium 132, potassium 4.3, chloride 96, bicarb 30, BUN of 10, and creatinine 0.84. Ferritin was 3473. CRP was 9.65. Troponin initially was 0.037. Repeat troponins were negative. Chest x-ray by my review as discussed above. CT angiogram of the chest and EKG by my review as discussed above. IMPRESSION: 1. Acute hypoxic respiratory failure. 2. Severe sepsis secondary to bilateral COVID pneumonia. 3. Coronary artery disease, status post coronary artery bypass grafting and recent non ST elevation myocardial infarction. 4. Hypertension. 5. Hyperlipidemia. 6. Benign prostatic hypertrophy. 7. Hyponatremia. 8. Abnormal LFTs. 9. Chronic kidney disease stage 2. 10. Chronic anemia, suspected due to nutritional deficiency. PLAN: The patient will be monitored on the telemetry unit. We will start him on dexamethasone. Infectious Disease will be consulted for possible remdesivir infusion. We will resume all of his home medication including aspirin and Plavix. Continue empiric antibiotics. We will hold statins due to abnormal LFTs. We will recheck labs including inflammatory markers on a daily basis. DVT prophylaxis with Lovenox. The patient was counseled on COVID-19 precautions. The patient understands the above plan of care. Job ID: [id number]
[2019-08-25] MEDS: Albuterol 200 PUFF (6.7GM INHALER) INH SCH ×6 (03:05→22:35)
[2019-08-25 06:15] LABS: #Lymphocytes 0.7 thou/uL (1.20-3.40); #Monocytes 0.7 thou/uL (0.11-0.59); #Neutrophils 4.3 thou/uL (1.40-6.50); %Basophils 0.4 % (0.0-1.0); %Eosinophils 0.2 % (0.0-10.0); %Lymphocytes 12.6 % (21.0-51.0); %Monocytes 11.5 % (0.0-10.0); %Neutrophils 75.3 % (42.0-75.0); Hemoglobin 14.7 g/dL (14.0-18.0); Mean Corpuscular Hemoglobin 30.2 pg (27.0-31.0); Mean Corpuscular Volume 94.4 fL (78.0-98.0); Mean Platelet Volume 8.4 fL (7.4-10.4); Platelet Count 256 thou/uL (130-400); RBC Distribution Width 11.5 % (11.5-14.5); Red Blood Cell (RBC) Count 4.87 mill/uL (4.70-6.10); White Blood Cell (WBC) Count 5.7 thou/uL (4.8-10.8)
[2019-08-25 06:31] LABS: ALT (SGPT) 87 U/L (8-55); AST (SGOT) 82 U/L (5-34); Albumin 3.7 g/dL (3.4-4.8); Alkaline Phosphatase 45 U/L (40-110); Anion Gap 18 mmol/L (10-20); BUN (Urea Nitrogen) 14 mg/dL (8.4-25.7); Bilirubin, Total 0.7 mg/dL (0.2-1.2); Calc. Creatinine Clearance 93 mL/min (70-130); Calcium 9.4 mg/dL (7.8-10.44); Carbon Dioxide 17 mmol/L (23-31); Chloride 101 mmol/L (98-107); Estimated GFR-MDRD Greater than 90; Globulin 3.7 g/dL (2.4-3.5); Glucose 126 mg/dL (83-110); Magnesium 2.2 mg/dL (1.6-2.6); Potassium 4.3 mmol/L (3.5-5.1); Protein, Total 7.4 g/dL (5.8-8.1); Sodium 132 mmol/L (136-145)
--- NOTE | 2019-08-25 08:33 | PDOC.HOSPP ---
- Subjective Encounter Date: 08/25/19 Encounter Time: 12:57 Subjective: Patient seen and examined for resp failure. Appetite improving. Productive cough +. No new complaints. No overnight events - Objective Vital Signs & Weight: Vital Signs (12 hours) Temp Pulse Resp BP Pulse Ox 08/25/19 04:00 97.3 F L 68 18 141/70 H 94 L 08/25/19 00:00 97.9 F 68 18 101/58 L 94 L Weight Weight 173 lb 12.8 oz I&O: 08/24/19 08/25/19 08/26/19 06:59 06:59 06:59 Intake Total 1350 Output Total 300 Balance 1050 Result Diagrams: 08/25/19 05:23 08/25/19 05:22 EKG Reviewed by me: Yes (Tele SR) Hospitalist ROS - Review of Systems Respiratory: reports: cough, SOB with excertion. denies: dry, shortness of breath, hemoptysis, pleuritic pain, sputum, wheezing, other Cardiovascular: denies: chest pain, palpitations, orthopnea, paroxysmal noc. dyspnea, edema, light headedness, other Gastrointestinal: denies: nausea, vomiting, abdominal pain, diarrhea, constipation, melena, hematochezia, other - Medication Medications: Active Medications Generic Name Dose Route Start Last Admin Trade Name Freq PRN Reason Stop Dose Admin Albuterol Sulfate 2 puff 08/24/19 10:30 08/25/19 04:55 Proventil Hfa INH 2 puff [id number] IMELDA Administration Aspirin 81 mg 08/24/19 21:00 08/24/19 21:04 Aspirin Chewable PO 81 mg HS IMELDA Administration Guaifenesin 600 mg 08/24/19 21:00 08/24/19 21:04 Mucinex PO 600 mg Q12HR IMELDA Administration Lisinopril 2.5 mg 08/24/19 21:00 08/24/19 21:04 Zestril PO 2.5 mg HS IMELDA Administration Metoprolol Succinate 12.5 mg 08/24/19 21:00 08/24/19 21:02 Toprol Xl PO 12.5 mg HS IMELDA Administration Pantoprazole Sodium 40 mg 08/24/19 21:00 08/24/19 21:02 Protonix PO 40 mg HS IMEDLA Administration Senna/Docusate Sodium 2 tab 08/24/19 21:00 08/24/19 21:02 Senokot S PO 2 tab BID IMELDA Administration Tamsulosin HCl 0.4 mg 08/24/19 21:00 08/24/19 21:04 Flomax PO 0.4 mg HS IMELDA Administration Zinc Sulfate 220 mg 08/24/19 21:00 08/24/19 21:02 Zinc Sulfate PO 220 mg HS IMELDA Administration - Exam General Appearance: NAD Heart: RRR, no gallops Respiratory: no rales, rhonchi Gastrointestinal: non-tender, normal bowel sounds Extremities: no cyanosis Neurological: no new deficit Hosp A/P - Plan DVT proph w/lovenox, DVT proph w/SCDs 1. Acute hypoxic respiratory failure. 2. Severe sepsis secondary to bilateral COVID pneumonia. 3. Coronary artery disease, status post coronary artery bypass grafting and recent non ST elevation myocardial infarction. 4. Hypertension. 5. Hyperlipidemia. 6. Benign prostatic hypertrophy. 7. Hyponatremia. 8. Abnormal LFTs. 9. Chronic kidney disease stage 2. 10. Chronic anemia, suspected due to nutritional deficiency. PLAN: Cont dexamethasone. Does not meet criteria for remdesivir Cont aspirin and Plavix Cont BB, ACEI and Nitrates DVT prophylaxis with Lovenox.
[2019-08-25] MEDS ORDERED: Dexamethasone 10 MG/ML VIAL SLOW IVP SCH (09:00)
[2019-08-25] MEDS: Enoxaparin Sodium 40 MG/0.4 ML SYRINGE SC SCH (10:06)
[2019-08-25] MEDS: Ezetimibe 10 MG TAB PO SCH (10:06)
[2019-08-25] MEDS: Senokot S 8.6-50 MG TAB PO SCH ×3 (10:06→20:59)
[2019-08-25] MEDS: Ascorbic Acid 500 mg Chewable Tablet PO SCH (10:06)
[2019-08-25] MEDS: Finasteride 5 MG TAB PO SCH (10:07)
[2019-08-25] MEDS: Clopidogrel Bisulfate 75 MG TAB PO SCH (10:07)
[2019-08-25] MEDS: Dexamethasone 4 MG TAB PO SCH (10:07)
[2019-08-25] MEDS: guaiFENesin ER 600 MG TAB PO SCH ×2 (10:07→20:35)
[2019-08-25] MEDS: Aspirin Chewable 81 MG TAB PO SCH (20:34)
[2019-08-25] MEDS: Tamsulosin HCl 0.4 MG CAP PO SCH (20:35)
[2019-08-25] MEDS: Zinc Sulfate 220 MG CAP PO SCH (20:35)
[2019-08-25] MEDS: Lisinopril 2.5 MG TAB PO SCH (21:00)
[2019-08-26] MEDS: Albuterol 200 PUFF (6.7GM INHALER) INH SCH ×7 (02:47→22:45)
[2019-08-26 04:44] LABS: #Lymphocytes 0.5 thou/uL (1.20-3.40); #Monocytes 0.9 thou/uL (0.11-0.59); #Neutrophils 9.7 thou/uL (1.40-6.50); %Eosinophils 0.1 % (0.0-10.0); %Monocytes 8.3 % (0.0-10.0); %Neutrophils 87.6 % (42.0-75.0); Mean Corpuscular HGB CONC 33.6 g/dL (32.0-36.0); Mean Corpuscular Hemoglobin 30.9 pg (27.0-31.0); Mean Corpuscular Volume 92.1 fL (78.0-98.0); Mean Platelet Volume 7.3 fL (7.4-10.4); Platelet Count 277 thou/uL (130-400); Red Blood Cell (RBC) Count 3.87 mill/uL (4.70-6.10); White Blood Cell (WBC) Count 11.1 thou/uL (4.8-10.8)
[2019-08-26 04:53] LABS: ALT (SGPT) 103 U/L (8-55); AST (SGOT) 77 U/L (5-34); Albumin 3.2 g/dL (3.4-4.8); Alkaline Phosphatase 43 U/L (40-110); Anion Gap 13 mmol/L (10-20); BUN (Urea Nitrogen) 20 mg/dL (8.4-25.7); Bilirubin, Total 0.6 mg/dL (0.2-1.2); CRP (Inflammatory) 4.07 mg/dL (= or < 0.5); Calc. Creatinine Clearance 91 mL/min (70-130); Calcium 8.7 mg/dL (7.8-10.44); Carbon Dioxide 23 mmol/L (23-31); Chloride 101 mmol/L (98-107); Estimated GFR-MDRD Greater than 90; Globulin 2.9 g/dL (2.4-3.5); Glucose 120 mg/dL (83-110); Potassium 4.2 mmol/L (3.5-5.1); Protein, Total 6.1 g/dL (5.8-8.1); Sodium 133 mmol/L (136-145)
--- NOTE | 2019-08-26 07:28 | PDOC.HOSPP ---
- Subjective Encounter Date: 08/26/19 Encounter Time: 17:00 Subjective: Patient seen and examined for resp failure. No new complaints. No overnight events - Objective Vital Signs & Weight: Vital Signs (12 hours) Temp Pulse Resp BP BP Pulse Ox 08/26/19 05:44 95 08/26/19 04:03 97.8 F 72 20 103/56 L 95 08/26/19 00:15 97.7 F 62 20 134/63 95 08/25/19 21:00 64 114/58 L 08/25/19 20:36 97.9 F 64 20 114/58 L 94 L Weight Admit Weight 173 lb 12.8 oz Weight 173 lb 12.8 oz I&O: 08/25/19 08/26/19 08/27/19 06:59 06:59 06:59 Intake Total 1350 660 Output Total 300 Balance 1050 660 Result Diagrams: 08/26/19 04:19 08/26/19 04:19 Additional Labs: Laboratory Tests 08/24/19 08/26/19 08/26/19 05:17 04:19 04:19 D-Dimer 0.90 H Ferritin 3322.18 H C-Reactive Protein 4.07 H 08/26/19 04:19 D-Dimer 0.42 Ferritin C-Reactive Protein EKG Reviewed by me: Yes (Tele Sr) Hospitalist ROS - Review of Systems Respiratory: denies: cough, dry, shortness of breath, hemoptysis, SOB with excertion, pleuritic pain, sputum, wheezing, other Cardiovascular: denies: chest pain, palpitations, orthopnea, paroxysmal noc. dyspnea, edema, light headedness, other - Medication Medications: Active Medications Generic Name Dose Route Start Last Admin Trade Name Freq PRN Reason Stop Dose Admin Albuterol Sulfate 2 puff 08/24/19 10:30 08/26/19 06:46 Proventil Hfa INH 2 puff [id number] IMELDA Administration Ascorbic Acid 1,000 mg 08/25/19 09:00 08/25/19 10:06 Vitamin C PO 1,000 mg DAILY IMELDA Administration Aspirin 81 mg 08/24/19 21:00 08/25/19 20:34 Aspirin Chewable PO 81 mg HS IMELDA Administration Clopidogrel Bisulfate 75 mg 08/25/19 09:00 08/25/19 10:07 Plavix PO 75 mg DAILY IMELDA Administration Dexamethasone 6 mg 08/25/19 09:00 08/25/19 10:07 Decadron PO 6 mg DAILY IMELDA Administration Ezetimibe 10 mg 08/25/19 09:00 08/25/19 10:06 Zetia PO 10 mg DAILY IMELDA Administration Enoxaparin Sodium 40 mg 08/25/19 09:00 08/25/19 10:06 Lovenox SC 40 mg 0900 IMELDA Administration Finasteride 5 mg 08/25/19 09:00 08/25/19 10:07 Proscar PO 5 mg DAILY IMELDA Administration Guaifenesin 600 mg 08/24/19 21:00 08/25/19 20:35 Mucinex PO 600 mg Q12HR IMELDA Administration Isosorbide Mononitrate 30 mg 08/25/19 09:00 08/25/19 10:07 Imdur Er PO 30 mg DAILY IMELDA Administration Lisinopril 2.5 mg 08/24/19 21:00 08/25/19 21:00 Zestril PO 2.5 mg HS IMELDA Administration Metoprolol Succinate 12.5 mg 08/24/19 21:00 08/25/19 21:00 Toprol Xl PO 12.5 mg HS IMELDA Administration Pantoprazole Sodium 40 mg 08/24/19 21:00 08/25/19 20:35 Protonix PO 40 mg HS IMELDA Administration Senna/Docusate Sodium 2 tab 08/24/19 21:00 08/25/19 20:59 Senokot S PO Not Given BID IMELDA Sodium Chloride 10 ml 08/24/19 09:54 08/25/19 20:37 Flush - Normal Saline IVF 10 ml PRN PRN Administration Saline Flush Tamsulosin HCl 0.4 mg 08/24/19 21:00 08/25/19 20:35 Flomax PO 0.4 mg HS IMELDA Administration Zinc Sulfate 220 mg 08/24/19 21:00 08/25/19 20:35 Zinc Sulfate PO 220 mg HS IMELDA Administration - Exam General Appearance: NAD Neck: supple, no JVD Heart: RRR, no gallops Respiratory: no wheezes, no ronchi Gastrointestinal: soft, non-tender, normal bowel sounds Extremities: no cyanosis, no clubbing Neurological: no new deficit Hosp A/P - Plan DVT proph w/lovenox, DVT proph w/SCDs 1. Acute hypoxic respiratory failure. 2. Severe sepsis secondary to bilateral COVID pneumonia. 3. Coronary artery disease, status post coronary artery bypass grafting and recent non ST elevation myocardial infarction. 4. Hypertension. 5. Hyperlipidemia. 6. Benign prostatic hypertrophy. 7. Hyponatremia. 8. Abnormal LFTs. 9. Chronic kidney disease stage 2. 10. Chronic anemia, suspected due to nutritional deficiency. PLAN: Cont PO dexamethasone Inf markers improving Cont aspirin and Plavix Cont BB, ACEI and Nitrates DVT prophylaxis with Lovenox. Cont to monitor DC planning per ID
[2019-08-26] MEDS: Ascorbic Acid 500 mg Chewable Tablet PO SCH (08:44)
[2019-08-26] MEDS: Dexamethasone 4 MG TAB PO SCH (08:45)
[2019-08-26] MEDS: Ezetimibe 10 MG TAB PO SCH (08:45)
[2019-08-26] MEDS: Clopidogrel Bisulfate 75 MG TAB PO SCH (08:45)
[2019-08-26] MEDS: Senokot S 8.6-50 MG TAB PO SCH ×2 (08:45→21:14)
[2019-08-26] MEDS: Enoxaparin Sodium 40 MG/0.4 ML SYRINGE SC SCH (08:46)
[2019-08-26] MEDS: Finasteride 5 MG TAB PO SCH (08:46)
[2019-08-26] MEDS: guaiFENesin ER 600 MG TAB PO SCH ×2 (08:46→21:12)
[2019-08-26] MEDS: Aspirin Chewable 81 MG TAB PO SCH (21:12)
[2019-08-26] MEDS: Lisinopril 2.5 MG TAB PO SCH (21:14)
[2019-08-26] MEDS: Tamsulosin HCl 0.4 MG CAP PO SCH (21:15)
[2019-08-26] MEDS: Zinc Sulfate 220 MG CAP PO SCH (21:20)
[2019-08-27] MEDS: Albuterol 200 PUFF (6.7GM INHALER) INH SCH ×4 (02:32→16:47)
[2019-08-27 05:14] LABS: #Lymphocytes 0.4 thou/uL (1.20-3.40); #Neutrophils 8.9 thou/uL (1.40-6.50); %Eosinophils 0.1 % (0.0-10.0); %Lymphocytes 4.3 % (21.0-51.0); %Monocytes 9.4 % (0.0-10.0); %Neutrophils 86.3 % (42.0-75.0); Hemoglobin 12.2 g/dL (14.0-18.0); Mean Corpuscular HGB CONC 33.1 g/dL (32.0-36.0); Mean Corpuscular Hemoglobin 30.6 pg (27.0-31.0); Mean Corpuscular Volume 92.5 fL (78.0-98.0); Mean Platelet Volume 7.2 fL (7.4-10.4); Platelet Count 298 thou/uL (130-400); RBC Distribution Width 11.3 % (11.5-14.5); Red Blood Cell (RBC) Count 3.98 mill/uL (4.70-6.10); White Blood Cell (WBC) Count 10.3 thou/uL (4.8-10.8)
[2019-08-27 05:35] LABS: ALT (SGPT) 144 U/L (8-55); AST (SGOT) 78 U/L (5-34); Albumin 3.2 g/dL (3.4-4.8); Alkaline Phosphatase 47 U/L (40-110); Anion Gap 11 mmol/L (10-20); BUN (Urea Nitrogen) 15 mg/dL (8.4-25.7); Bilirubin, Total 0.6 mg/dL (0.2-1.2); Calc. Creatinine Clearance 99 mL/min (70-130); Calcium 8.7 mg/dL (7.8-10.44); Carbon Dioxide 27 mmol/L (23-31); Chloride 102 mmol/L (98-107); Estimated GFR-MDRD Greater than 90; Globulin 2.7 g/dL (2.4-3.5); Glucose 101 mg/dL (83-110); Potassium 4.2 mmol/L (3.5-5.1); Protein, Total 5.9 g/dL (5.8-8.1); Sodium 136 mmol/L (136-145)
[2019-08-27] MEDS: Finasteride 5 MG TAB PO SCH (08:04)
[2019-08-27] MEDS: guaiFENesin ER 600 MG TAB PO SCH (08:04)
[2019-08-27] MEDS: Ascorbic Acid 500 mg Chewable Tablet PO SCH (08:04)
[2019-08-27] MEDS: Ezetimibe 10 MG TAB PO SCH (08:04)
[2019-08-27] MEDS: Dexamethasone 4 MG TAB PO SCH (08:04)
[2019-08-27] MEDS: Clopidogrel Bisulfate 75 MG TAB PO SCH (08:04)
[2019-08-27] MEDS: Enoxaparin Sodium 40 MG/0.4 ML SYRINGE SC SCH (08:05)
[2019-08-27] MEDS: Senokot S 8.6-50 MG TAB PO SCH (08:26)
[2019-08-27 10:26] VITALS: BP 143/63; TEMP 97.9
--- NOTE | 2019-08-27 12:06 | DIS ---
DATE OF ADMISSION: 08/24/2019 DATE OF DISCHARGE: 08/27/2019 DISCHARGE DISPOSITION: Home. FOLLOWUP: 1. Follow up with primary care physician, Dr. Tomi Peralta in 1 week. 2. Follow up with Dr. Hampton in 2 weeks. ALLERGIES: THE PATIENT IS ALLERGIC TO KEFLEX. THE PATIENT WAS ADVISED TO HOLD CRESTOR DUE TO SLIGHTLY ABNORMAL LFTS. TE PATIENT DENIES ANY COMPLAINTS ON THE DAY OF DISCHARGE. PHYSICAL EXAMINATION: VITAL SIGNS: Showed temperature of 97.9 with pulse rate of 78, respirations of 18, blood pressure 143/63 with O2 saturation 93% on 1.5 L nasal cannula. Home O2 will be arranged. SIGNIFICANT LABS: 1. Ferritin improved to 2539 from 3473. 2. CRP improved to 2.1 from 9.65. 3. D-dimer improved to 0.42 from 0.9. BRIEF HOSPITAL COURSE: The patient is a 79-year-old male with coronary artery disease status post bypass, presented to the hospital with shortness of breath and low oxygen saturation. He was diagnosed with COVID infection 10 days prior to admission. Please refer to the history and physical for further details. The patient was admitted to the hospital with a diagnosis of acute hypoxic respiratory failure along with severe sepsis due to bilateral COVID pneumonia. He was monitored in the telemetry unit. He was placed on supplemental O2. The patient was evaluated by Infectious Disease, Dr. Hampton. Dr. Hampton recommended dexamethasone 6 mg daily for 10 days. He did not meet the criteria for remdesivir. His symptoms have significantly improved. He is on 1.5 L oxygen. His inflammatory markers are improving. I discussed with Dr. Hampton, who agrees with the patient being discharge. Home oxygen will be arranged. The patient understands the above plan of care. FINAL DIAGNOSES: 1. Acute hypoxic respiratory failure. 2. Severe sepsis secondary to bilateral COVID pneumonia. 3. Coronary artery disease status post coronary artery bypass grafting with recent non ST elevation myocardial infarction. 4. Hypertension. 5. Hyperlipidemia. 6. Benign prostatic hypertrophy. 7. Hyponatremia. 8. Abnormal liver function tests. Crestor will be held until liver function tests improved. 9. Chronic anemia, suspected due to nutritional deficiency. 10. Chronic kidney disease, stage 2. The patient understands the above plan of care. Job ID: [id number]
== END 2019-08-27 15:45 | disposition home or self-care (01) | DRG 871 ==
LOC: ERS 05:00 → 2SW 08:04
PROVIDERS: ADMIT Internal Medicine; ATTEND Internal Medicine
PROC: 8E0ZXY6 Isolation (ICD-10-PCS; principal; 2019-08-24)
DX: A41.89 Other specified sepsis (principal); U07.1 COVID-19; J96.01 Acute respiratory failure with hypoxia; J12.89 Other viral pneumonia; E87.1 Hypo-osmolality and hyponatremia; R65.20 Severe sepsis without septic shock; I25.10 Atherosclerotic heart disease of native coronary artery without angina pectoris; N40.0 Benign prostatic hyperplasia without lower urinary tract symptoms; E78.5 Hyperlipidemia, unspecified; R94.5 Abnormal results of liver function studies; N18.2 Chronic kidney disease, stage 2 (mild); I12.9 Hypertensive chronic kidney disease with stage 1 through stage 4 chronic kidney disease, or unspecified chronic kidney disease; E78.2 Mixed hyperlipidemia; K21.9 Gastro-esophageal reflux disease without esophagitis; D53.9 Nutritional anemia, unspecified; Z88.1 Allergy status to other antibiotic agents; Z79.899 Other long term (current) drug therapy; Z95.1 Presence of aortocoronary bypass graft; Z79.82 Long term (current) use of aspirin; Z79.02 Long term (current) use of antithrombotics/antiplatelets; I25.2 Old myocardial infarction
CPT/HCPCS: 36415; 71045; 71275; 80053; 82550; 82553; 82728; 83605; 83735; 83880; 84484; 85025; 85379; 86140; 87040; 93005; 96365; 96372; 96375; J0456; J1100; J1650; J3490; J8540; Q9967

== ENCOUNTER 2019-12-08 14:10 | Inpatient (IN) | payer MEDICARE, OTHER ==
--- NOTE | 2019-12-08 14:47 | RAD ---
EXAM: CHEST ONE VIEW HISTORY: Elevated blood pressure. COMPARISON: 08/24/2019 FINDINGS: Postoperative changes related to CABG are again noted. Cardiac silhouette is within normal limits for portable technique of the study. The pulmonary vasculature is within normal limits. Previously seen interstitial prominence and areas of interstitial thickening have resolved. No consolidation or pleural fluid is appreciated on this exam. Vascular calcifications are seen in thoracic aorta. Postoperative changes right shoulder are again seen. IMPRESSION: No acute cardiopulmonary process.
[2019-12-08] MEDS ORDERED: Aspirin Chewable 81 MG TAB ONE (15:02)
[2019-12-08] MEDS ORDERED: Nitroglycerin 2% Ointment 1 INCH/1 GM Packet ONE (15:02)
[2019-12-08 15:27] LABS: #Eosinphils 0.2 thou/uL (0.0-0.7); #Lymphocytes 1.2 thou/uL (1.20-3.40); #Monocytes 0.9 thou/uL (0.11-0.59); #Neutrophils 4.5 thou/uL (1.40-6.50); %Basophils 0.4 % (0.0-1.0); %Eosinophils 2.8 % (0.0-10.0); %Lymphocytes 17.5 % (21.0-51.0); %Monocytes 13.6 % (0.0-10.0); %Neutrophils 65.6 % (42.0-75.0); Hemoglobin 15.1 g/dL (14.0-18.0); Mean Corpuscular HGB CONC 35.1 g/dL (32.0-36.0); Mean Corpuscular Hemoglobin 32.9 pg (27.0-31.0); Mean Corpuscular Volume 93.9 fL (78.0-98.0); Mean Platelet Volume 8.5 fL (7.4-10.4); Platelet Count 176 thou/uL (130-400); RBC Distribution Width 11.5 % (11.5-14.5); Red Blood Cell (RBC) Count 4.58 mill/uL (4.70-6.10); White Blood Cell (WBC) Count 6.8 thou/uL (4.8-10.8)
[2019-12-08 15:51] LABS: ALT (SGPT) 20 U/L (8-55); AST (SGOT) 25 U/L (5-34); Albumin 3.8 g/dL (3.4-4.8); Alkaline Phosphatase 48 U/L (40-110); Anion Gap 13 mmol/L (10-20); BUN (Urea Nitrogen) 16 mg/dL (8.4-25.7); Bilirubin, Total 0.4 mg/dL (0.2-1.2); CK (CPK) 74 U/L (30-200); Calc. Creatinine Clearance 0 mL/min (70-130); Calcium 9.1 mg/dL (7.8-10.44); Carbon Dioxide 25 mmol/L (23-31); Chloride 106 mmol/L (98-107); Estimated GFR-MDRD 68; Glucose 99 mg/dL (83-110); Potassium 4.3 mmol/L (3.5-5.1); Protein, Total 6.8 g/dL (5.8-8.1); Sodium 140 mmol/L (136-145)
--- NOTE | 2019-12-08 17:25 | PDOC.HHP ---
Hospitalist HPI - History of Present Illness Chest pain History of Present Illness: This is a 79-year-old male patient with a history of 2 bypass surgeries, BPH, hyperlipidemia, hypercholesterolemia and hypertension who presents with ongoing intermittent chest pain for the past week. He describes the pain as mild pressure-like lower retrosternal and brought on by activity. He notes when he goes on the treadmill the pain comes versus moving faster however would improve with slowing down and entirely stop any stops walking. He notes no associated nausea or diaphoresis He also notes chest pain on walking long distances and relieved by nitroglycerin. He had cardiac catheterization on 06/12/2019 which noted significant multivessel stenosis. Also had graft in place. He is on dual antiplatelet therapy aspirin and Plavix. Was previously on a statin but this was discontinued on his previous admission on account of poor liver function given his Covid infection. He was recently admitted and discharged on 08/27/2019 on account of severe sepsis secondary to Covid pneumonia for which he successfully recovered. As presentation blood pressure was 149/66, MOPP 83, pulse 63, temperature 97.6 oxygen saturation 96 on room air. CBC showed no significant abnormalities, BMP was also essentially within normal limits. Troponin was not elevated. He was given aspirin 81 mg and nitroglycerin patch. Hospitalist team consulted for admission. Hospitalist ROS - Review of Systems Constitutional: denies: fever, chills, sweats, weakness Respiratory: denies: cough, dry, shortness of breath, hemoptysis Cardiovascular: reports: chest pain. denies: palpitations, orthopnea, paroxysmal noc. dyspnea Gastrointestinal: denies: nausea, vomiting, abdominal pain, diarrhea Genitourinary: denies: dysuria, frequency, incontinence, hematuria Neurological: denies: weakness, numbness, incoordination, change in speech Hospitalist History - Past Medical History Other Medical History: VA, BPH, hypertension, hyperlipidemia - Family History Other Family History: Hypercholesterolemia - Social History Smoking Status: Never smoker Alcohol: reports: None Living Situation: With Family Activity level: independent ambulation - Exam General Appearance: awake alert General - other findings: In no acute distress Eye: PERRL, anicteric sclera ENT: normocephalic atraumatic, no oropharyngeal lesions, moist mucosa Heart: RRR, no murmur, no gallops, no rubs, normal peripheral pulses Respiratory: no wheezes, no rales, no ronchi, normal chest expansion Gastrointestinal: soft, non-tender, non-distended, normal bowel sounds Extremities: no cyanosis, no edema Neurological: cranial nerve grossly intact, normal sensation to touch, no weakness Musculoskeletal: normal tone, no muscle wasting Psychiatric: normal affect, A&O x 3 Hospitalist Results - Labs Result Diagrams: 12/08/19 15:19 12/08/19 15:19 Lab results: WBC 6.8 thou/uL (4.8-10.8) 12/08/19 15:19 Hgb 15.1 g/dL (14.0-18.0) 12/08/19 15:19 Hct 43.0 % (42.0-52.0) 12/08/19 15:19 MCV 93.9 fL (78.0-98.0) 12/08/19 15:19 Plt Count 176 thou/uL (130-400) 12/08/19 15:19 Neutrophils % 65.6 % (42.0-75.0) 12/08/19 15:19 Sodium 140 mmol/L (136-145) 12/08/19 15:19 Potassium 4.3 mmol/L (3.5-5.1) 12/08/19 15:19 Chloride 106 mmol/L (98-107) 12/08/19 15:19 Carbon Dioxide 25 mmol/L (23-31) 12/08/19 15:19 BUN 16 mg/dL (8.4-25.7) 12/08/19 15:19 Creatinine 1.05 mg/dL (0.7-1.3) 12/08/19 15:19 Glucose 99 mg/dL (83-110) 12/08/19 15:19 Calcium 9.1 mg/dL (7.8-10.44) 12/08/19 15:19 Total Bilirubin 0.4 mg/dL (0.2-1.2) 12/08/19 15:19 AST 25 U/L (5-34) 12/08/19 15:19 ALT 20 U/L (8-55) 12/08/19 15:19 Alkaline Phosphatase 48 U/L (40-110) 12/08/19 15:19 Creatine Kinase 74 U/L (30-200) 12/08/19 15:19 Troponin I Less than 0.010 ng/mL (< 0.028) 12/08/19 15:19 Serum Total Protein 6.8 g/dL (5.8-8.1) 12/08/19 15:19 Albumin 3.8 g/dL (3.4-4.8) 12/08/19 15:19 Hospitalist H&P A/P - Plan Plan: This is a 79-year-old male patient you have an extensive coronary artery disease history including 2 bypass surgeries and recent NSTEMI I have already not undergo stenting presents with ongoing worsening intermittent chest pain for the past week. Chest pain Concerns for ACShad recent VA and not on a statin at the moment Initial troponin not elevated We will continue dual antiplatelet therapy Nitroglycerin Trend troponin No need for stress test giving his recent catheterization Given his significant heart history would have cardiology consult Hypertension Resume home BP medications once verified As needed hydralazine/labetalol BPH Continue tamsulosin DVT prophylaxisLovenox CODE STATUSfull code
[2019-12-08] MEDS ORDERED: Acetaminophen 325 MG TAB PO PRN (18:30)
[2019-12-08] MEDS ORDERED: Ondansetron PF 4 MG/2 ML Vial IVP PRN (18:30)
[2019-12-08] MEDS ORDERED: Ondansetron ODT 4 MG TAB SL PRN (18:30)
[2019-12-08] MEDS ORDERED: HYDROcodone/Acetaminophen 5/325 mg Tablet PO PRN ×2 (18:30)
[2019-12-08 18:31] VITALS: BMI 27.4
[2019-12-08 18:46] LABS: Troponin I 0.011 ng/mL (< 0.028)
[2019-12-08 21:49] LABS: Troponin I Less than 0.010 ng/mL (< 0.028)
--- NOTE | 2019-12-09 00:46 | PDOC.FMACP ---
Advance Care Planning - Note Summary: Advanced Care Planning was discussed. The diagnosis, prognosis and goals of care were discussed. he is full code and DPOA is his
[2019-12-09 04:34] LABS: #Eosinphils 0.3 thou/uL (0.0-0.7); #Lymphocytes 1.4 thou/uL (1.20-3.40); #Neutrophils 5.6 thou/uL (1.40-6.50); %Basophils 0.5 % (0.0-1.0); %Eosinophils 3.5 % (0.0-10.0); %Lymphocytes 17.2 % (21.0-51.0); %Monocytes 11.6 % (0.0-10.0); %Neutrophils 67.3 % (42.0-75.0); Hemoglobin 14.5 g/dL (14.0-18.0); Mean Corpuscular HGB CONC 35.4 g/dL (32.0-36.0); Mean Corpuscular Hemoglobin 33.3 pg (27.0-31.0); Mean Platelet Volume 8.8 fL (7.4-10.4); Platelet Count 164 thou/uL (130-400); RBC Distribution Width 11.5 % (11.5-14.5); Red Blood Cell (RBC) Count 4.35 mill/uL (4.70-6.10); White Blood Cell (WBC) Count 8.4 thou/uL (4.8-10.8)
[2019-12-09 05:03] LABS: Anion Gap 13 mmol/L (10-20); BUN (Urea Nitrogen) 15 mg/dL (8.4-25.7); Calc. Creatinine Clearance 84 mL/min (70-130); Calcium 8.8 mg/dL (7.8-10.44); Carbon Dioxide 24 mmol/L (23-31); Chloride 106 mmol/L (98-107); Estimated GFR-MDRD 82; Glucose 96 mg/dL (83-110); Potassium 3.7 mmol/L (3.5-5.1); Sodium 139 mmol/L (136-145)
[2019-12-09] MEDS: Cholecalciferol 1,000 UNITS (25 MCG) TAB PO SCH (08:29)
[2019-12-09] MEDS: Finasteride 5 MG TAB PO SCH (08:29)
[2019-12-09] MEDS: Enoxaparin Sodium 40 MG/0.4 ML SYRINGE SC SCH (08:30)
[2019-12-09] MEDS ORDERED: GARLIC 1000 MG PO SCH (09:00)
[2019-12-09 10:35] LABS: SARS-CoV-2 MS2 Positive; SARS-CoV-2 N Gene Negative; SARS-CoV-2 S Gene Negative; SARS-CoV-2 by NAA Not Detected (NotDetected); SARS-CoV-2 orf1ab Negative
[2019-12-09] MEDS ORDERED: Amlodipine 5 MG TAB PO SCH (15:00)
--- NOTE | 2019-12-09 18:51 | CON ---
DATE OF CONSULTATION: 12/09/2019 REASON FOR CONSULTATION: Chest pressure. HISTORY OF PRESENT ILLNESS: Mr. Vergara is a 79-year-old man with previous history of bypass surgery and subsequent redo bypass surgery. He has been having angina. He has been noticing last few days he has been having increasing amounts of angina and pain and pressure in his chest. He has noticed it on a treadmill. He has noticed it with walking briskly. Yesterday, he came to the hospital because his blood pressure was high and he was having some chest pressure. He is feeling well now. PAST MEDICAL HISTORY: History of bypass surgery and then repeat bypass surgery done in 2006. The patient came in with a non-ST elevation myocardial infarction, underwent repeat cardiac catheterization by Dr. Alejandre, was found to have two-vessel coronary artery disease and no obstruction disease in the right coronary, but patent graft to the LAD, internal mammary did not appear to be patent to the LAD, but the old graft done in the was still patent with some distal disease in the LAD, patent graft to ramus, but lot of areas that look like that could be ischemic in the circumflex distribution and also diagonal branch. The patient otherwise has been doing fairly well, but having increasing angina recently. MEDICATIONS: He was taking Ranexa, recently started, it seem to be helping, but now he is having more angina. 1. Rosuvastatin. 2. Clopidogrel. 3. Aspirin. 4. Zetia. ALLERGIES: CEPHALEXIN. PHYSICAL EXAMINATION: GENERAL: This is a pleasant gentleman, in no distress. VITAL SIGNS: Blood pressure was 160/70, it is 170 to 180 yesterday. LUNGS: Clear. CARDIAC: Normal S1, normal S2. ABDOMEN: Soft and nontender. EXTREMITIES: Warm and dry. No clubbing or cyanosis. No edema. DIAGNOSTIC STUDIES: EKG did not show ischemic changes. He did have sinus bradycardia yesterday. Cardiac enzymes were negative. ASSESSMENT: 1. Angina. 2. Previous bypass and then repeat bypass in 2006. PLAN: 1. Do stress test that the stress portion has been done. The resting is pending. 2. Increase Ranexa. 3. Add amlodipine. We will follow with you. Job ID: [id number]
[2019-12-09] MEDS ORDERED: Ezetimibe 10 MG TAB PO SCH (21:00)
[2019-12-09] MEDS ORDERED: Clopidogrel Bisulfate 75 MG TAB PO SCH (21:00)
[2019-12-09] MEDS ORDERED: Rosuvastatin 20 MG TAB PO SCH (21:00)
[2019-12-09] MEDS ORDERED: Lisinopril 2.5 MG TAB PO SCH (21:00)
[2019-12-09] MEDS ORDERED: Tamsulosin HCl 0.4 MG CAP PO SCH (21:00)
--- NOTE | 2019-12-09 21:19 | PDOC.HOSPP ---
- Subjective Encounter Date: 12/09/19 Encounter Time: 11:00 Subjective: Patient was seen and examined in bed. He denies any chest pain or shortness of breath and had a relatively good night. - Objective Vital Signs & Weight: Vital Signs (12 hours) Temp Pulse Resp BP Pulse Ox 12/09/19 17:18 65 12/09/19 15:57 98.9 F 65 19 114/55 L 98 12/09/19 12:00 98.5 F 85 19 160/75 H 98 Weight Weight 191 lb 1.6 oz Result Diagrams: 12/09/19 04:03 12/09/19 04:03 Hospitalist ROS - Medication Medications: Active Medications Generic Name Dose Route Start Last Admin Trade Name Freq PRN Reason Stop Dose Admin Cholecalciferol 1,000 units 12/09/19 09:00 12/09/19 08:29 Cholecalciferol 1,000 Units (25 Mcg) Tab PO 1,000 units DAILY IMELDA Administration Clopidogrel Bisulfate 75 mg 12/09/19 21:00 12/09/19 21:13 Clopidogrel Bisulfate 75 Mg Tab PO 75 mg HS IMLEDA Administration Ezetimibe 10 mg 12/09/19 21:00 12/09/19 21:13 Ezetimibe 10 Mg Tab PO 10 mg HS IMELDA Administration Enoxaparin Sodium 40 mg 12/09/19 09:00 12/09/19 08:30 Enoxaparin Sodium 40 Mg/0.4 Ml Syringe SC 40 mg 0900 IMELDA Administration Finasteride 5 mg 12/09/19 09:00 12/09/19 08:29 Finasteride 5 Mg Tab PO 5 mg DAILY IMELDA Administration Isosorbide Mononitrate 30 mg 12/09/19 09:00 12/09/19 08:29 Isosorbide Mononitrate Er 30 Mg Tab PO 30 mg DAILY IMELDA Administration Lisinopril 2.5 mg 12/09/19 21:00 12/09/19 21:13 Lisinopril 2.5 Mg Tab PO 2.5 mg HS IMELDA Administration Metoprolol Succinate 12.5 mg 12/09/19 21:00 12/09/19 21:13 Metoprolol Succinate Xl 25 Mg Tab PO 12.5 mg HS IMELDA Administration Pantoprazole Sodium 40 mg 12/09/19 09:00 12/09/19 08:30 Pantoprazole 40 Mg Tab PO 40 mg DAILY IMELDA Administration Ranolazine 1,000 mg 12/09/19 21:00 12/09/19 21:14 Ranolazine 500 Mg Tab PO 1,000 mg BID IMELDA Administration Rosuvastatin Calcium 20 mg 12/09/19 21:00 12/09/19 21:14 Rosuvastatin 20 Mg Tab PO 20 mg HS IMELDA Administration Tamsulosin HCl 0.4 mg 12/09/19 21:00 12/09/19 21:15 Tamsulosin Hcl 0.4 Mg Cap PO 0.4 mg HS IMELDA Administration - Exam General Appearance: awake alert General - other findings: No acute distress Heart: RRR, no murmur, no gallops, no rubs Respiratory: no wheezes, no rales, no ronchi, no tachypnea Gastrointestinal: soft, non-tender, non-distended, normal bowel sounds Extremities: no cyanosis, no clubbing, no edema Hosp A/P - Plan 79-year-old male patient with a history of coronary disease status post CABG admission on account of ongoing chest pain. Chest pain Possibly angina Heart failure is better stress test today To complete stress test tomorrow Cardiology evaluated Hypertension BP controlled Continue monitoring Continue home blood pressure medication. BPH Continue tamsulosin VT prophylaxis
[2019-12-10] MEDS: Cholecalciferol 1,000 UNITS (25 MCG) TAB PO SCH (08:29)
[2019-12-10] MEDS: Enoxaparin Sodium 40 MG/0.4 ML SYRINGE SC SCH (08:30)
[2019-12-10] MEDS: Finasteride 5 MG TAB PO SCH (08:32)
[2019-12-10] MEDS ORDERED: Amlodipine 5 MG TAB PO SCH (09:00)
--- NOTE | 2019-12-10 10:43 | NM ---
EXAM: CARDIAC SPECT HISTORY: Chest pain, coronary disease, ND, CABG, hypertension, dyslipidemia TECHNIQUE: A myocardial perfusion scan was performed using the single isotope 2 day protocol with floyd hnetium 99m sestamibi. [30] was injected intravenously for the rest exam followed by 30 mCi for the stress study. Pharmacologic stress with adenosine was monitored and interpreted by Dr. Morrison FINDINGS: There is a small fixed defect in the distal anterolateral wall. No reversible defects are s een. Gated SPECT LVEF: 60% Wall motion exam: Normal IMPRESSION: No evidence of reversible ischemia.
--- NOTE | 2019-12-10 12:12 | PRG ---
DATE OF SERVICE: 12/10/2019 SUBJECTIVE: Mr. Vergara is doing well today. No chest pain or pressure. OBJECTIVE: VITAL SIGNS: Blood pressure 137/66, pulse 63. LUNGS: Clear. CARDIAC: Normal S1, normal S2. DIAGNOSTIC DATA: Stress test was normal. ASSESSMENT: Episode of angina, but no ischemia on stress testing. PLAN: 1. We have added amlodipine 5 mg a day. 2. Vascepa 2 g twice a day. 3. Ranexa 1 g twice a day. 4. Follow up with us in 2 to 3 weeks. Other medicines unchanged. Job ID: [id number]
[2019-12-10 13:29] VITALS: BP 98/54; TEMP 98.2
--- NOTE | 2019-12-10 20:29 | PDOC.DS.DS ---
Provider - Provider Date of Admission: 12/10/19 09:00 Date of Discharge: 12/10/19 Admitting Provider: Gigi Banda MD Primary Care Physician: TOMI PERALTA JR, MD Course - Hospital Course Hospital Course: This is a 79-year-old male patient with a history of coronary disease status post 2 bypass surgeries who presented with exertional chest pain. He was admitted for stress test. Lipid profile showed increased triglyceride Stress test results turned out to be negative for any new ischemia. Cardiology was consulted and medications were updated. He was discharged on Vascepa 2 g twice daily, Ranexa 1 g twice daily and added amlodipine 5 mg a day. He will follow up with cardiology Pertinent Studies: Stress test showed no evidence of reversible ischemia Resuscitation Status: 12/08/19 17:28 Resuscitation Status Routine Resuscitation Status: FULL: Full Resuscitation - Labs Lab Results: 12/09/19 04:03 12/09/19 04:03 Abnormal Lab Results - Last 48 hrs 12/09/19 04:03: RBC 4.35 L, Hct 40.9 L, MCH 33.3 H, Lymphocytes % 17.2 L, Monocytes % 11.6 H, Monocytes # 1.0 H 12/10/19 03:33: Triglycerides 276 H - Physical Exam Vitals: Vital Signs (12 hours) Temp Pulse Resp BP Pulse Ox 12/10/19 12:00 98.2 F 88 14 98/54 L 96 Weight Weight 191 lb 1.6 oz Physical Exam: The patient was seen and examined on the day of discharge. Cardiovascular: S1-S2 present and normal. No murmurs gallops or rubs. Respiratory system: Air entry adequate bilaterally. Abdomen: Benign Extremities: No edema Problem - Discharge Plan Assessment: 79-year-old male patient history of coronary disease admitted on account of chest pain. Patient was admitted and had a stress test which was negative. His medications were updated by cardiology Follow-up with cardiology on outpatient basis Plan - Discharge Medications Prescriptions: Amlodipine [Norvasc] 5 mg PO DAILY 30 Days #30 tab Ranolazine [Ranolazine ER] 1,000 mg PO BID 30 Days #120 tab Icosapent Ethyl [Vascepa] 2 gm PO BID-WM 30 Days capsule Home Medications: Medication Instructions Recorded Confirmed Type Aspirin 81 mg PO HS 05/02/17 12/08/19 History Finasteride 5 mg PO DAILY 05/02/17 12/08/19 History Garlic 1,000 mg PO DAILY 05/02/17 12/08/19 History Lisinopril 2.5 mg PO HS 05/02/17 12/08/19 History Metoprolol Succinate 12.5 mg PO HS 05/02/17 12/08/19 History Omeprazole 20 mg PO DAILY 05/02/17 12/08/19 History Cholecalciferol (Vitamin D3) 1,000 unit PO DAILY 12/16/18 12/08/19 History [Vitamin D3] Tamsulosin HCl [Flomax] 0.4 mg PO HS 12/16/18 12/08/19 History Isosorbide Mononitrate [Isosorbide 30 mg PO DAILY 08/24/19 12/08/19 History Mononitrate ER] Clopidogrel Bisulfate [Plavix] 75 mg PO HS 12/08/19 12/08/19 History Ezetimibe [Zetia] 10 mg PO HS 12/08/19 12/08/19 History Rosuvastatin [Crestor] 1 tab PO HS 12/08/19 12/08/19 History Amlodipine [Norvasc] 5 mg PO DAILY 30 Days #30 tab 12/10/19 Rx Icosapent Ethyl [Vascepa] 2 gm PO BID-WM 30 Days capsule 12/10/19 Rx Ranolazine [Ranolazine ER] 1,000 mg PO BID 30 Days #120 tab 12/10/19 Rx Allergies: cephalexin Allergy (Verified 12/08/19 20:54) - Discharge Instructions Activity:: Activity as Tolerated Nourishment:: Heart Healthy Diet - Follow up Plan Referrals: Tomi Peralta Jr, MD [Primary Care Provider] - 7 Days (Call office to schedule appointment) Gina Morrison MD [Active] - 2-3 Weeks (Call office to schedule appointment) Disposition: HOME Quality - Stroke/TIA Did you prescribe antithrombotic therapy?: Yes
== END 2019-12-10 15:09 | disposition home or self-care (01) | DRG 311 ==
LOC: ERS 14:10 → 2NO 16:26 → OBSVTOIN 12-10 09:00
PROVIDERS: ADMIT Student in an Organized Health Care Education/Training Program; ATTEND Student in an Organized Health Care Education/Training Program
DX: I20.9 Angina pectoris, unspecified (principal); N40.0 Benign prostatic hyperplasia without lower urinary tract symptoms; Z20.828 Contact with and (suspected) exposure to other viral communicable diseases; E78.5 Hyperlipidemia, unspecified; I10 Essential (primary) hypertension; I25.2 Old myocardial infarction; Z95.1 Presence of aortocoronary bypass graft; Z88.1 Allergy status to other antibiotic agents
CPT/HCPCS: 36415; 71045; 78452; 80048; 80053; 80061; 82550; 84484; 85025; 87635; 93005; 93017; 99406; A9500; J1650; U0003

== ENCOUNTER 2021-07-06 13:44 | Outpatient (CLI) | payer MEDICARE | END 2021-07-06 13:45 | disposition home or self-care (01) | LOC: BICULT 13:44 | PROVIDERS: ATTEND Internal Medicine Cardiovascular Disease | DX: E04.1 Nontoxic single thyroid nodule (principal) | CPT/HCPCS: 76536 ==

== ENCOUNTER 2021-09-27 13:51 | Observation (INO) | payer MEDICARE ==
[2021-09-27 14:34] LABS: #Eosinphils 0.3 thou/uL (0.0-0.7); #Lymphocytes 1.5 thou/uL (1.20-3.40); #Monocytes 0.9 thou/uL (0.11-0.59); #Neutrophils 6.3 thou/uL (1.40-6.50); %Basophils 0.2 % (0.0-1.0); %Eosinophils 3.3 % (0.0-10.0); %Lymphocytes 16.1 % (21.0-51.0); %Monocytes 10.4 % (0.0-10.0); Hemoglobin 14.1 g/dL (14.0-18.0); Mean Corpuscular HGB CONC 34.2 g/dL (32.0-36.0); Mean Corpuscular Volume 96.3 fL (78.0-98.0); Mean Platelet Volume 7.9 fL (7.4-10.4); Platelet Count 210 thou/uL (130-400); RBC Distribution Width 11.4 % (11.5-14.5); Red Blood Cell (RBC) Count 4.29 mill/uL (4.70-6.10)
[2021-09-27 14:56] LABS: ALT (SGPT) 17 U/L (8-55); AST (SGOT) 20 U/L (5-34); Albumin 4.3 g/dL (3.4-4.8); Alkaline Phosphatase 50 U/L (40-110); Anion Gap 14 mmol/L (10-20); BUN (Urea Nitrogen) 22 mg/dL (8.4-25.7); Bilirubin, Total 0.9 mg/dL (0.2-1.2); Calc. Creatinine Clearance 0 mL/min (70-130); Calcium 9.9 mg/dL (7.8-10.44); Carbon Dioxide 28 mmol/L (23-31); Chloride 99 mmol/L (98-107); Estimated GFR 59; Globulin 2.7 g/dL (2.4-3.5); Glucose 96 mg/dL (83-110); Potassium 3.7 mmol/L (3.5-5.1); Sodium 137 mmol/L (136-145)
[2021-09-27 18:19] LABS: SARS-CoV-2 NAA Rapid Test Not Detected (NotDetected)
[2021-09-27 18:43] VITALS: BMI 25.7
[2021-09-27] MEDS ORDERED: Rosuvastatin 20 MG TAB PO SCH (21:00)
[2021-09-27] MEDS ORDERED: Aspirin Chewable 81 MG TAB PO SCH (21:00)
[2021-09-27] MEDS ORDERED: Lisinopril 2.5 MG TAB PO SCH (21:00)
[2021-09-27] MEDS ORDERED: Ezetimibe 10 MG TAB PO SCH (21:00)
[2021-09-27] MEDS ORDERED: Clopidogrel Bisulfate 75 MG TAB PO SCH (21:00)
[2021-09-27] MEDS ORDERED: Tamsulosin HCl 0.4 MG CAP PO SCH (21:00)
[2021-09-27 21:43] LABS: Troponin I 0.016 ng/mL (< 0.028)
[2021-09-28 04:46] LABS: #Eosinphils 0.4 thou/uL (0.0-0.7); #Lymphocytes 1.6 thou/uL (1.20-3.40); #Monocytes 1.1 thou/uL (0.11-0.59); #Neutrophils 4.2 thou/uL (1.40-6.50); %Basophils 0.3 % (0.0-1.0); %Lymphocytes 22.4 % (21.0-51.0); %Monocytes 14.8 % (0.0-10.0); %Neutrophils 57.5 % (42.0-75.0); Hemoglobin 13.3 g/dL (14.0-18.0); Mean Corpuscular HGB CONC 34.1 g/dL (32.0-36.0); Mean Corpuscular Hemoglobin 32.8 pg (27.0-31.0); Mean Platelet Volume 7.8 fL (7.4-10.4); Platelet Count 202 thou/uL (130-400); RBC Distribution Width 11.3 % (11.5-14.5); Red Blood Cell (RBC) Count 4.05 mill/uL (4.70-6.10); White Blood Cell (WBC) Count 7.2 thou/uL (4.8-10.8)
[2021-09-28 05:13] LABS: Anion Gap 14 mmol/L (10-20); BUN (Urea Nitrogen) 22 mg/dL (8.4-25.7); Calc. Creatinine Clearance 67 mL/min (70-130); Calcium 8.7 mg/dL (7.8-10.44); Carbon Dioxide 25 mmol/L (23-31); Chloride 105 mmol/L (98-107); Estimated GFR 74; Glucose 109 mg/dL (83-110); Potassium 3.6 mmol/L (3.5-5.1); Sodium 140 mmol/L (136-145)
[2021-09-28] MEDS ORDERED: Icosapent Ethyl 1 GM CAPSULE PO SCH (08:00)
[2021-09-28 08:09] VITALS: TEMP 97.5
[2021-09-28] MEDS ORDERED: Cholecalciferol 1,000 UNITS (25 MCG) TAB PO SCH (09:00)
[2021-09-28] MEDS ORDERED: Amlodipine 5 MG TAB PO SCH (09:00)
[2021-09-28] MEDS ORDERED: Finasteride 5 MG TAB PO SCH (09:00)
[2021-09-28] MEDS ORDERED: Enoxaparin Sodium 40 MG/0.4 ML SYRINGE SC SCH (09:00)
[2021-09-28] MEDS ORDERED: Potassium Chloride 20 MEQ TAB PO SCH (09:15)
[2021-09-28 11:37] VITALS: BP 100/64
[2021-09-29] MEDS ORDERED: Amlodipine 5 MG TAB PO SCH (09:00)
== END 2021-09-28 11:30 | disposition home or self-care (01) ==
LOC: ERS 13:51 → 2SW 18:19
PROVIDERS: ADMIT Internal Medicine; ATTEND Internal Medicine
DX: R00.0 Tachycardia, unspecified (principal); R07.9 Chest pain, unspecified; I25.10 Atherosclerotic heart disease of native coronary artery without angina pectoris; E78.01 Familial hypercholesterolemia; K21.9 Gastro-esophageal reflux disease without esophagitis; N40.0 Benign prostatic hyperplasia without lower urinary tract symptoms; I12.9 Hypertensive chronic kidney disease with stage 1 through stage 4 chronic kidney disease, or unspecified chronic kidney disease; N18.2 Chronic kidney disease, stage 2 (mild); D63.1 Anemia in chronic kidney disease; Z79.02 Long term (current) use of antithrombotics/antiplatelets; Z79.82 Long term (current) use of aspirin; Z79.899 Other long term (current) drug therapy; Z88.1 Allergy status to other antibiotic agents; Z95.1 Presence of aortocoronary bypass graft; Z20.822 Contact with and (suspected) exposure to COVID-19
CPT/HCPCS: 71046; 80048; 80053; 84484 ×2; 85025 ×2; 93005; 99285; U0002; 36415; G0378